=== PATIENT | female | born 1970 | race Caucasian/White ===

== ENCOUNTER → 2016-12-23 | Outpatient (CLI) | payer BC ==
[~2016-12-23] MED LIST: AUGMENTIN 875875 MG PO; BENICAR40 MG PO; FLEXERIL PO; NEXIUM40 MG PO; PROMETRIUM100 MG PO
== END ==
LOC: RAD 12-18 11:01 → SPEECH 13:37
DX: H69.92 Unspecified Eustachian tube disorder, left ear (principal); R13.10 Dysphagia, unspecified

== ENCOUNTER → 2019-05-20 | Outpatient (CLI) | payer BC | LOC: BC 13:37 | DX: Z12.31 Encounter for screening mammogram for malignant neoplasm of breast (principal) ==